=== PATIENT | female | born 1950 | race Caucasian/White ===

== ENCOUNTER 2018-07-26 11:17 | Outpatient (REF) | payer MEDICARE, MEDICAID, SELFPAY ==
[2018-07-26 22:03] LABS: Anion Gap 10.6 mmol/L (3-11); BUN 13 mg/dL (7-18); CO2 28.4 mmol/L (21.0-32.0); CREATININE 1.07 mg/dL (0.55-1.02); Calcium 8.8 mg/dL (8.5-10.1); Chloride 97 mmol/L (98-107); Estimated GFR 51.15 (mL/min/1.73m2); Glucose 153 mg/dL (70-100); Potassium 4.4 mmol/L (3.5-5.1); Sodium 136 mmol/L (136-145)
== END 2018-07-26 11:37 ==
LOC: NCHCN 11:17
PROVIDERS: PCP Family Medicine; Visit Provider Family Medicine
DX: N18.3 Chronic kidney disease, stage 3 (moderate) (principal); I10 Essential (primary) hypertension
CPT/HCPCS: 80048

== ENCOUNTER 2019-02-28 12:30 | Outpatient (REF) | payer MEDICARE, MEDICAID, SELFPAY ==
[2019-02-28 21:55] LABS: Anion Gap 10.8 mmol/L (3-11); BUN 15 mg/dL (7-18); CO2 25.2 mmol/L (21.0-32.0); Calcium 8.7 mg/dL (8.5-10.1); Chloride 100 mmol/L (98-107); Estimated GFR 49.54 (mL/min/1.73m2); Glucose 134 mg/dL (70-100); Potassium 5.6 mmol/L (3.5-5.1); Sodium 136 mmol/L (136-145); TSH (W/Ref FT4) 0.95 uIU/mL (0.36-3.74)
== END 2019-02-28 12:50 ==
LOC: NCHCN 12:30
PROVIDERS: PCP Family Medicine; Visit Provider Family Medicine
DX: E03.9 Hypothyroidism, unspecified (principal); N18.3 Chronic kidney disease, stage 3 (moderate)
CPT/HCPCS: 80048; 84443

== ENCOUNTER 2019-11-08 13:04 | Outpatient (REF) | payer MEDICARE, SELFPAY ==
[2019-11-08 20:40] LABS: Anion Gap 11.5 mmol/L (3-11); BUN 13 mg/dL (7-18); CO2 26.5 mmol/L (21.0-32.0); Calcium 9.9 mg/dL (8.5-10.1); Chloride 100 mmol/L (98-107); Estimated GFR 55.14 (mL/min/1.73m2); Glucose 130 mg/dL (74-106); Potassium 4.8 mmol/L (3.5-5.1); Sodium 138 mmol/L (136-145)
[2019-11-08 20:45] LABS: COMMENT (LAB VIEW ONLY) 43.57 mg/dL; Microalb ug/mg Crea 104.4 ug/mg Cr
== END 2019-11-08 13:24 ==
LOC: NCHCN 13:04
PROVIDERS: PCP Family Medicine; Visit Provider Registered Nurse
DX: E11.8 Type 2 diabetes mellitus with unspecified complications (principal); N18.3 Chronic kidney disease, stage 3 (moderate); E87.5 Hyperkalemia
CPT/HCPCS: 80048; 82043; 82570

== ENCOUNTER 2020-01-19 14:07 | Outpatient (REF) | payer MEDICARE, SELFPAY ==
[2020-01-19 22:01] LABS: BUN 12 mg/dL (7-18); CREATININE 0.94 mg/dL (0.55-1.02); Calcium 9.2 mg/dL (8.5-10.1); Chloride 101 mmol/L (98-107); Estimated GFR 59.22 (mL/min/1.73m2); Glucose 106 mg/dL (74-106); Potassium 4.6 mmol/L (3.5-5.1); Sodium 136 mmol/L (136-145)
== END 2020-01-19 14:27 ==
LOC: NCHCN 14:07
PROVIDERS: PCP Family Medicine; Visit Provider Registered Nurse
DX: R80.9 Proteinuria, unspecified (principal); I10 Essential (primary) hypertension
CPT/HCPCS: 80048

== ENCOUNTER 2020-12-03 14:51 | Outpatient (REF) | payer MEDICARE, SELFPAY ==
[2020-12-03 21:24] LABS: COMMENT (LAB VIEW ONLY) 125.45 mg/dL
[2020-12-03 21:26] LABS: Microalb ug/mg Crea 172.7 ug/mg Cr
== END 2020-12-03 14:52 | disposition home or self-care (01) ==
LOC: NCHCN 14:51
PROVIDERS: PCP Family Medicine; Visit Provider Family Medicine
DX: E11.8 Type 2 diabetes mellitus with unspecified complications (principal); E03.9 Hypothyroidism, unspecified; G89.4 Chronic pain syndrome
CPT/HCPCS: 82043; 82570

== ENCOUNTER 2021-06-11 21:04 | Outpatient (REF) | payer MEDICARE, SELFPAY ==
[2021-06-11 21:19] LABS: TSH 2.29 uIU/mL (0.36-3.74)
== END 2021-06-11 21:05 | disposition home or self-care (01) ==
LOC: NCHCN 21:04
PROVIDERS: PCP Family Medicine; Visit Provider Family Medicine
DX: E03.9 Hypothyroidism, unspecified (principal)
CPT/HCPCS: 84443

== ENCOUNTER 2021-09-05 19:08 | Outpatient (REF) | payer MEDICARE, SELFPAY ==
[2021-09-05 14:45] LABS: HCT 41.6 % (36.0-46.0); HGB 13.5 g/dL (11.2-15.7); MCH 29.3 pg (27.0-33.0); MCHC 32.5 % (32.0-36.0); MCV 90.2 fL (80-95); MPV 9.8 fL (8.0-11.0); Platelet Count 303 10^3/uL (130-400); RBC 4.61 10^6/uL (3.93-5.22); RDW 14.2 % (11.7-14.6); RDW-SD 47.1 fL; WBC 8.66 10^3/uL (4.4-10.8)
[2021-09-05 15:11] LABS: ALT 17 U/L (14-59); AST 13 U/L (15-37); Albumin 3.6 g/dL (3.4-5.0); Alkaline Phosphatase 81 U/L (46-116); Anion Gap 10.5 mmol/L (3-11); BUN 8 mg/dL (7-18); Bilirubin, Total 0.3 mg/dL (0.2-1.0); CO2 24.5 mmol/L (21.0-32.0); CREATININE 0.8 mg/dL (0.55-1.02); Calcium 8.3 mg/dL (8.5-10.1); Calculated LDL 48 mg/dL (<100); Chloride 99 mmol/L (98-107); Cholesterol 139 mg/dL (<200); Glucose 91 mg/dL (74-106); HDL Cholesterol 66 mg/dL (40-60); Potassium 4.9 mmol/L (3.5-5.1); Sodium 134 mmol/L (136-145); Total Protein 6.8 g/dL (6.4-8.2); Triglyceride 125 mg/dL (<150)
== END 2021-09-05 19:09 | disposition home or self-care (01) ==
LOC: NCHCN 19:08
PROVIDERS: PCP Family Medicine; Visit Provider Family Medicine
DX: E66.9 Obesity, unspecified (principal); R63.4 Abnormal weight loss; Z13.220 Encounter for screening for lipoid disorders
CPT/HCPCS: 80053; 80061; 85027

== ENCOUNTER 2021-12-19 15:55 | Outpatient (REF) | payer MEDICARE, SELFPAY ==
[2021-12-19 22:01] LABS: COMMENT (LAB VIEW ONLY) 113.98 mg/dL
[2021-12-19 22:09] LABS: Microalb ug/mg Crea 120.3 ug/mg Cr
== END 2021-12-19 15:56 | disposition home or self-care (01) ==
LOC: NCHCN 15:55
PROVIDERS: PCP Family Medicine; Visit Provider Registered Nurse
DX: E11.8 Type 2 diabetes mellitus with unspecified complications (principal); N76.0 Acute vaginitis
CPT/HCPCS: 82043; 82570; 87480; 87510; 87660

== ENCOUNTER 2022-09-11 17:06 | Outpatient (REF) | payer MEDICARE, SELFPAY ==
--- OUTSIDE RECORDS SUMMARY | 2022-09-11 17:09 | XMS_ITS | CCD ---
Author Name Unknown Address [address] [place] [address] [phone] Organization Unknown Address [address] [place] [address] [phone] Care Team Providers Care Television Mechanic Name Role Phone TOMÁS MANSOOR E Attending Physician [phone] Vital Signs Unknown or Not Available. Allergies Allergy Code Allergy Type Reaction Status LISINOPRIL 74836 Drug allergy OLENA INHIBITOR EDEMA Act lashell ERYTHROMYCIN 4053 Drug allergy Active AMOXICILLIN 723 Drug allergy Hives Active CECLOR {Deactivated Allergy} 900047 Drug allergy Hives Active CLINDAMYCIN HCL 2582 Drug allergy Active SEASONAL {Clinical monitorin g unavailable} 0 Allergy to substance Active LEVAQUIN 561175 Drug allergy PROFUSE VOMITING Active BACTRIM 979028 Drug allergy SEVERE SWELLING Active Procedures Unknown or Not Available. History of Immunizations Unknown or Not Available. Problems Problem Code Start Date Resolved Date Status Congestive heart failure, unspecified 88313162 Active Results Unknown or Not Available. Active Medications Medication Code Dose Units Frequency Route Modificatio n Start Date/Time Sodium Bicarbonate 7.5% Intravenous Solution 513570 150 MILLILITERS per hour INTRAVENOUS 2017 18:53 Prescription Detail 150 MILLILITERS INTRAVENOUS per hour Ipratropium [place]-Albut mer Sulfate 0.5MG/3ML-3MG /3ML Inhalation Solution 6354812 3 MILLILITERS NEEDED EVERY 4 HOURS INHALATION 10/17/2017 18:52 Prescription Detail 3 MILLILITERS INHALATION NEEDED EVERY 4 HOURS Mapap 325MG Oral Tablet 409376 650 MILLIGRAMS NEEDED EVERY 4 HOURS BY MOUTH 10/17/2017 18:52 Prescription Detail TAKE 650 MILLIGRAMS BY MOUTH NEEDED E VERY 4 HOURS Synthroid 125MCG Oral Tablet 783969 125 MICROGRAM Q7AM BY MOUTH 10/17/2017 18:52 Prescription Detail TAKE 125 MICROGRAM BY MOUTH Q7AM Ipratropium [place]-Albut mer Sulfate 0.5MG/3ML-3MG /3ML Inhalation Solution 6942230 1 EACH FOUR TIMES A DAY INHALATION 08/27/2017 14:34 Prescription Detail 1 EACH INHALATION FOUR TIMES A DAY Medications Administered During Visit Unknown or Not Available. Encounters Encounter Diagnosis Diagnosis Code Start Date Encounter for screening mamm ogram for malignant neoplasm of breast Z1231 10/16/2021 Social History Smoking Status Code Start Date End Date Former smoker [id number] Patient Decision Aids Unknown or Not Available. Discharge Instructions You were admitted to [facility] on 10/16/2021 13:39 with a principal diagnosis of Encounter for screening mammogram for malignant neoplasm of breast You were discharged from [facility] on 10/16/2021 13:39 Should you have any questions prior to discharge, please contact a member of your healthcare team. If you have left the hospital and have any questions, please contact your primary care physician. Chief Complaint and Reason For Visit Chief Complaint Date of Onset POSTMENOPAUSAL MM SCR LDCT SMOKER Function Status Unknown or Not Available. Plan of Care Unknown or Not Available. Referral/Transition of Care Unknown or Not Available.
--- OUTSIDE RECORDS SUMMARY | 2022-09-11 17:09 | XMS_ITS | CCD ---
Author Name Unknown Address [address] [place] [address] [phone] Organization Unknown Address [address] [place] [address] [phone] Care Team Providers Care In Home Tutor Name Role Phone JOSE CORTEZ Attending Physician [phone] JOSE CORTEZ Rounding (Secondary) Physicia n [phone] Vital Signs Unknown or Not Available. Allergies Allergy Code Allergy Type Reaction Status LISINOPRIL 56496 Drug allergy OLENA INHIBITOR EDEMA Act lashell ERYTHROMYCIN 4053 Drug allergy Active AMOXICILLIN 723 Drug allergy Hives Active CECLOR {Deactivated Allergy} 436628 Drug allergy Hives Active CLINDAMYCIN HCL 2582 Drug allergy Active SEASONAL {Clinical monitorin g unavailable} 0 Allergy to substance Active LEVAQUIN 170004 Drug allergy PROFUSE VOMITING Active BACTRIM 381407 Drug allergy SEVERE SWELLING Active Procedures Unknown or Not Available. History of Immunizations Unknown or Not Available. Problems Problem Code Start Date Resolved Date Status Congestive heart failure, unspecified 28772772 Active Results Unknown or Not Available. Active Medications Medication Code Dose Units Frequency Route Modificatio n Start Date/Time Sodium Bicarbonate 7.5% Intravenous Solution 566186 150 MILLILITERS per hour INTRAVENOUS 2017 18:53 Prescription Detail 150 MILLILITERS INTRAVENOUS per hour Ipratropium [place]-Albut mer Sulfate 0.5MG/3ML-3MG /3ML Inhalation Solution 4642732 3 MILLILITERS NEEDED EVERY 4 HOURS INHALATION 10/17/2017 18:52 Prescription Detail 3 MILLILITERS INHALATION NEEDED EVERY 4 HOURS Mapap 325MG Oral Tablet 854190 650 MILLIGRAMS NEEDED EVERY 4 HOURS BY MOUTH 10/17/2017 18:52 Prescription Detail TAKE 650 MILLIGRAMS BY MOUTH NEEDED E VERY 4 HOURS Synthroid 125MCG Oral Tablet 391116 125 MICROGRAM Q7AM BY MOUTH 10/17/2017 18:52 Prescription Detail TAKE 125 MICROGRAM BY MOUTH Q7AM Ipratropium [place]-Albut mer Sulfate 0.5MG/3ML-3MG /3ML Inhalation Solution 8571922 1 EACH FOUR TIMES A DAY INHALATION 08/27/2017 14:34 Prescription Detail 1 EACH INHALATION FOUR TIMES A DAY Medications Administered During Visit Unknown or Not Available. Encounters Encounter Diagnosis Diagnosis Code Start Date Chronic ulcer of foot 180024201 12/17/2021 Social History Smoking Status Code Start Date End Date Former smoker 5481977 Patient Decision Aids Unknown or Not Available. Discharge Instructions You were admitted to [facility] on 12/17/2021 13:49 with a principal diagnosis of Non-pressure chronic ulcer of other part of right foot with fat layer exposed You were discharged from [facility] on 12/17/2021 00:00 Should you have any questions prior to discharge, please contact a member of your healthcare team. If you have left the hospital and have any questions, please contact your primary care physician. Chief Complaint and Reason For Visit Unknown or Not Available. Function Status Unknown or Not Available. Plan of Care Unknown or Not Available. Referral/Transition of Care Unknown or Not Available.
--- OUTSIDE RECORDS SUMMARY | 2022-09-11 17:09 | XMS_ITS | CCD ---
Author Name Unknown Address [address] [place] [address] [phone] Organization Unknown Address [address] [place] [address] [phone] Care Team Providers Care Wool Cleaner Name Role Phone JOSE CORTEZ Attending Physician [phone] JOSE CORTEZ Rounding (Secondary) Physicia n [phone] Vital Signs Unknown or Not Available. Allergies Allergy Code Allergy Type Reaction Status LISINOPRIL 34678 Drug allergy OLENA INHIBITOR EDEMA Act lashell ERYTHROMYCIN 4053 Drug allergy Active AMOXICILLIN 723 Drug allergy Hives Active CECLOR {Deactivated Allergy} 655909 Drug allergy Hives Active CLINDAMYCIN HCL 2582 Drug allergy Active SEASONAL {Clinical monitorin g unavailable} 0 Allergy to substance Active LEVAQUIN 100461 Drug allergy PROFUSE VOMITING Active BACTRIM 510084 Drug allergy SEVERE SWELLING Active Procedures Unknown or Not Available. History of Immunizations Unknown or Not Available. Problems Problem Code Start Date Resolved Date Status Congestive heart failure, unspecified 89760726 Active Results Unknown or Not Available. Active Medications Medication Code Dose Units Frequency Route Modificatio n Start Date/Time Sodium Bicarbonate 7.5% Intravenous Solution 871784 150 MILLILITERS per hour INTRAVENOUS 2017 18:53 Prescription Detail 150 MILLILITERS INTRAVENOUS per hour Ipratropium [place]-Albut mer Sulfate 0.5MG/3ML-3MG /3ML Inhalation Solution 8855151 3 MILLILITERS NEEDED EVERY 4 HOURS INHALATION 10/17/2017 18:52 Prescription Detail 3 MILLILITERS INHALATION NEEDED EVERY 4 HOURS Mapap 325MG Oral Tablet 131183 650 MILLIGRAMS NEEDED EVERY 4 HOURS BY MOUTH 10/17/2017 18:52 Prescription Detail TAKE 650 MILLIGRAMS BY MOUTH NEEDED E VERY 4 HOURS Synthroid 125MCG Oral Tablet 688299 125 MICROGRAM Q7AM BY MOUTH 10/17/2017 18:52 Prescription Detail TAKE 125 MICROGRAM BY MOUTH Q7AM Ipratropium [place]-Albut mer Sulfate 0.5MG/3ML-3MG /3ML Inhalation Solution 7944147 1 EACH FOUR TIMES A DAY INHALATION 08/27/2017 14:34 Prescription Detail 1 EACH INHALATION FOUR TIMES A DAY Medications Administered During Visit Unknown or Not Available. Encounters Encounter Diagnosis Diagnosis Code Start Date Chronic ulcer of foot [id number] 02/16/2022 Social History Smoking Status Code Start Date End Date Former smoker 2832802 Patient Decision Aids Unknown or Not Available. Discharge Instructions You were admitted to [facility] on 02/16/2022 13:11 with a principal diagnosis of Non-pressure chronic ulcer of other part of left foot with fat layer exposed You were discharged from [facility] on 02/16/2022 00:00 Should you have any questions prior [...]
--- OUTSIDE RECORDS SUMMARY | 2022-09-11 17:09 | XMS_ITS | CCD ---
Author Name Unknown Address [address] [place] [address] [id number] Organization Unknown Address [address] [place] [address] [phone] Care Team Providers Care Special Police Name Role Phone JOSE CORTEZ Attending Physician [phone] JOSE CORTEZ Rounding (Secondary) Physicia n [phone] Vital Signs Unknown or Not Available. Allergies Allergy Code Allergy Type Reaction Status LISINOPRIL 39106 Drug allergy OLENA INHIBITOR EDEMA Act lashell ERYTHROMYCIN 4053 Drug allergy Active AMOXICILLIN 723 Drug allergy Hives Active CECLOR {Deactivated Allergy} 949585 Drug allergy Hives Active CLINDAMYCIN HCL 2582 Drug allergy Active SEASONAL {Clinical monitorin g unavailable} 0 Allergy to substance Active LEVAQUIN 626126 Drug allergy PROFUSE VOMITING Active BACTRIM 170902 Drug allergy SEVERE SWELLING Active Procedures Unknown or Not Available. History of Immunizations Unknown or Not Available. Problems Problem Code Start Date Resolved Date Status Congestive heart failure, unspecified 25693538 Active Results Unknown or Not Available. Active Medications Medication Code Dose Units Frequency Route Modificatio n Start Date/Time Sodium Bicarbonate 7.5% Intravenous Solution 810005 150 MILLILITERS per hour INTRAVENOUS 2017 18:53 Prescription Detail 150 MILLILITERS INTRAVENOUS per hour Ipratropium [place]-Albut mer Sulfate 0.5MG/3ML-3MG /3ML Inhalation Solution 9142570 3 MILLILITERS NEEDED EVERY 4 HOURS INHALATION 10/17/2017 18:52 Prescription Detail 3 MILLILITERS INHALATION NEEDED EVERY 4 HOURS Mapap 325MG Oral Tablet 729782 650 MILLIGRAMS NEEDED EVERY 4 HOURS BY MOUTH 10/17/2017 18:52 Prescription Detail TAKE 650 MILLIGRAMS BY MOUTH NEEDED E VERY 4 HOURS Synthroid 125MCG Oral Tablet 984376 125 MICROGRAM Q7AM BY MOUTH 10/17/2017 18:52 Prescription Detail TAKE 125 MICROGRAM BY MOUTH Q7AM Ipratropium [place]-Albut mer Sulfate 0.5MG/3ML-3MG /3ML Inhalation Solution 3123026 1 EACH FOUR TIMES A DAY INHALATION 08/27/2017 14:34 Prescription Detail 1 EACH INHALATION FOUR TIMES A DAY Medications Administered During Visit Unknown or Not Available. Encounters Encounter Diagnosis Diagnosis Code Start Date Chronic ulcer of foot [id number] 01/28/2022 Social History Smoking Status Code Start Date End Date Former smoker 3340247 Patient Decision Aids Unknown or Not Available. Discharge Instructions You were admitted to [facility] on 01/28/2022 11:32 with a principal diagnosis of Non-pressure chronic ulcer of other part of left foot with fat layer exposed You were discharged from [facility] on 01/28/2022 00:00 Should you have any questions prior [...]
--- OUTSIDE RECORDS SUMMARY | 2022-09-11 17:09 | XMS_ITS | CCD ---
Author Name Unknown Address [address] [place] [address] [phone] Organization Unknown Address [address] [place] [address] [phone] Care Team Providers Care Weave Defect Charting Clerk Name Role Phone SONDRA GREER Attending Physician [phone] SONDRA GREER Rounding (Secondary) Physici an [phone] Vital Signs Unknown or Not Available. Allergies Allergy Code Allergy Type Reaction Status LISINOPRIL 64682 Drug allergy OLENA INHIBITOR EDEMA Act lashell ERYTHROMYCIN 4053 Drug allergy Active AMOXICILLIN 723 Drug allergy Hives Active CECLOR {Deactivated Allergy} 934793 Drug allergy Hives Active CLINDAMYCIN HCL 2582 Drug allergy Active SEASONAL {Clinical monitorin g unavailable} 0 Allergy to substance Active LEVAQUIN 874273 Drug allergy PROFUSE VOMITING Active BACTRIM 109217 Drug allergy SEVERE SWELLING Active Procedures Unknown or Not Available. History of Immunizations Unknown or Not Available. Problems Problem Code Start Date Resolved Date Status Congestive heart failure, unspecified 18959737 Active Results Unknown or Not Available. Active Medications Medication Code Dose Units Frequency Route Modificatio n Start Date/Time Sodium Bicarbonate 7.5% Intravenous Solution 204901 150 MILLILITERS per hour INTRAVENOUS 2017 18:53 Prescription Detail 150 MILLILITERS INTRAVENOUS per hour Ipratropium [place]-Albut mer Sulfate 0.5MG/3ML-3MG /3ML Inhalation Solution 0158424 3 MILLILITERS NEEDED EVERY 4 HOURS INHALATION 10/17/2017 18:52 Prescription Detail 3 MILLILITERS INHALATION NEEDED EVERY 4 HOURS Mapap 325MG Oral Tablet 286749 650 MILLIGRAMS NEEDED EVERY 4 HOURS BY MOUTH 10/17/2017 18:52 Prescription Detail TAKE 650 MILLIGRAMS BY MOUTH NEEDED E VERY 4 HOURS Synthroid 125MCG Oral Tablet 139746 125 MICROGRAM Q7AM BY MOUTH 10/17/2017 18:52 Prescription Detail TAKE 125 MICROGRAM BY MOUTH Q7AM Ipratropium [place]-Albut mer Sulfate 0.5MG/3ML-3MG /3ML Inhalation Solution 5112560 1 EACH FOUR TIMES A DAY INHALATION 08/27/2017 14:34 Prescription Detail 1 EACH INHALATION FOUR TIMES A DAY Medications Administered During Visit Unknown or Not Available. Encounters Encounter Diagnosis Diagnosis Code Start Date Refusal of treatment by patient [id number] 11/25/2021 Social History Smoking Status Code Start Date End Date Former smoker 2727079 Patient Decision Aids Unknown or Not Available. Discharge Instructions You were admitted to [facility] on 11/25/2021 10:22 with a principal diagnosis of Procedure and treatment not carried out because of patient's decision for other reasons You were discharged from [facility] on 11/25/2021 15:48 Should you have any questions prior to [...]
--- OUTSIDE RECORDS SUMMARY | 2022-09-11 17:09 | XMS_ITS | CCD ---
Author Name Unknown Address [address] [place] [address] [phone] Organization Unknown Address [address] [place] [address] [phone] Care Team Providers Care Cottrell Blower Name Role Phone JOSE CORTEZ Attending Physician [phone] JOSE CORTEZ Rounding (Secondary) Physicia n [phone] Vital Signs Unknown or Not Available. Allergies Allergy Code Allergy Type Reaction Status LISINOPRIL 87559 Drug allergy OLENA INHIBITOR EDEMA Act lashell ERYTHROMYCIN 4053 Drug allergy Active AMOXICILLIN 723 Drug allergy Hives Active CECLOR {Deactivated Allergy} 819813 Drug allergy Hives Active CLINDAMYCIN HCL 2582 Drug allergy Active SEASONAL {Clinical monitorin g unavailable} 0 Allergy to substance Active LEVAQUIN 909792 Drug allergy PROFUSE VOMITING Active BACTRIM 890747 Drug allergy SEVERE SWELLING Active Procedures Unknown or Not Available. History of Immunizations Unknown or Not Available. Problems Problem Code Start Date Resolved Date Status Congestive heart failure, unspecified 62625137 Active Results Unknown or Not Available. Active Medications Medication Code Dose Units Frequency Route Modificatio n Start Date/Time Sodium Bicarbonate 7.5% Intravenous Solution 624498 150 MILLILITERS per hour INTRAVENOUS 2017 18:53 Prescription Detail 150 MILLILITERS INTRAVENOUS per hour Ipratropium [place]-Albut mer Sulfate 0.5MG/3ML-3MG /3ML Inhalation Solution 1431838 3 MILLILITERS NEEDED EVERY 4 HOURS INHALATION 10/17/2017 18:52 Prescription Detail 3 MILLILITERS INHALATION NEEDED EVERY 4 HOURS Mapap 325MG Oral Tablet 155181 650 MILLIGRAMS NEEDED EVERY 4 HOURS BY MOUTH 10/17/2017 18:52 Prescription Detail TAKE 650 MILLIGRAMS BY MOUTH NEEDED E VERY 4 HOURS Synthroid 125MCG Oral Tablet 726972 125 MICROGRAM Q7AM BY MOUTH 10/17/2017 18:52 Prescription Detail TAKE 125 MICROGRAM BY MOUTH Q7AM Ipratropium [place]-Albut mer Sulfate 0.5MG/3ML-3MG /3ML Inhalation Solution 7367601 1 EACH FOUR TIMES A DAY INHALATION 08/27/2017 14:34 Prescription Detail 1 EACH INHALATION FOUR TIMES A DAY Medications Administered During Visit Unknown or Not Available. Encounters Encounter Diagnosis Diagnosis Code Start Date Chronic ulcer of foot [id number] 01/14/2022 Social History Smoking Status Code Start Date End Date Former smoker 0379916 Patient Decision Aids Unknown or Not Available. Discharge Instructions You were admitted to [facility] on 01/14/2022 14:19 with a principal diagnosis of Non-pressure chronic ulcer of other part of left foot with fat layer exposed You were discharged from [facility] on 01/14/2022 00:00 Should you have any questions prior [...]
--- OUTSIDE RECORDS SUMMARY | 2022-09-11 17:10 | XMS_ITS | CCD ---
Author Name Unknown Address [address] [place] [address] [phone] Organization Unknown Address [address] [place] [address] [phone] Care Team Providers Care Cigar Head Perforator Name Role Phone AJ SANCHEZ Attending Physician [phone] AJ SANCHEZ Rounding (Secondary) Physician [phone] Vital Signs Unknown or Not Available. Allergies Allergy Code Allergy Type Reaction Status LISINOPRIL 00392 Drug allergy OLENA INHIBITOR EDEMA Act lashell ERYTHROMYCIN 4053 Drug allergy Active AMOXICILLIN 723 Drug allergy Hives Active CECLOR {Deactivated Allergy} 448924 Drug allergy Hives Active CLINDAMYCIN HCL 2582 Drug allergy Active SEASONAL {Clinical monitorin g unavailable} 0 Allergy to substance Active LEVAQUIN 555196 Drug allergy PROFUSE VOMITING Active BACTRIM 221040 Drug allergy SEVERE SWELLING Active Procedures Unknown or Not Available. History of Immunizations Unknown or Not Available. Problems Problem Code Start Date Resolved Date Status Congestive heart failure, unspecified 13723421 Active Results Unknown or Not Available. Active Medications Medication Code Dose Units Frequency Route Modificatio n Start Date/Time Sodium Bicarbonate 7.5% Intravenous Solution 240668 150 MILLILITERS per hour INTRAVENOUS 2017 18:53 Prescription Detail 150 MILLILITERS INTRAVENOUS per hour Ipratropium [place]-Albut mer Sulfate 0.5MG/3ML-3MG /3ML Inhalation Solution 5531625 3 MILLILITERS NEEDED EVERY 4 HOURS INHALATION 10/17/2017 18:52 Prescription Detail 3 MILLILITERS INHALATION NEEDED EVERY 4 HOURS Mapap 325MG Oral Tablet 734946 650 MILLIGRAMS NEEDED EVERY 4 HOURS BY MOUTH 10/17/2017 18:52 Prescription Detail TAKE 650 MILLIGRAMS BY MOUTH NEEDED E VERY 4 HOURS Synthroid 125MCG Oral Tablet 460931 125 MICROGRAM Q7AM BY MOUTH 10/17/2017 18:52 Prescription Detail TAKE 125 MICROGRAM BY MOUTH Q7AM Ipratropium [place]-Albut mer Sulfate 0.5MG/3ML-3MG /3ML Inhalation Solution 1441856 1 EACH FOUR TIMES A DAY INHALATION 08/27/2017 14:34 Prescription Detail 1 EACH INHALATION FOUR TIMES A DAY Medications Administered During Visit Unknown or Not Available. Encounters Unknown or Not Available. Social History Smoking Status Code Start Date End Date Former smoker 0546460 Patient Decision Aids Unknown or Not Available. Discharge Instructions You were admitted to [facility] You were discharged from [facility] Should you have any questions prior to [...]
[2022-09-11 21:18] LABS: HCT 40.4 % (36.0-46.0); HGB 13.2 g/dL (11.2-15.7); MCH 29.1 pg (27.0-33.0); MCHC 32.7 % (32.0-36.0); MCV 89 fL (80-95); MPV 9.4 fL (8.0-11.0); Platelet Count 319 10^3/uL (130-400); RBC 4.54 10^6/uL (3.93-5.22); RDW 13.4 % (11.7-14.6); RDW-SD 43.8 fL; WBC 10.39 10^3/uL (4.4-10.8)
[2022-09-11 21:35] LABS: ALT 19 U/L (14-59); AST 20 U/L (15-37); Albumin 3.5 g/dL (3.4-5.0); Alkaline Phosphatase 84 U/L (46-116); Anion Gap 5.9 mmol/L (3-11); BUN 14 mg/dL (7-18); Bilirubin, Total 0.3 mg/dL (0.2-1.0); CO2 30.1 mmol/L (21.0-32.0); Calcium 9.1 mg/dL (8.5-10.1); Chloride 99 mmol/L (98-107); Estimated GFR 60.23 (mL/min/1.73m2); Glucose 105 mg/dL (74-106); Potassium 5.4 mmol/L (3.5-5.1); Sodium 135 mmol/L (136-145); TSH (W/Ref FT4) 1.61 uIU/mL (0.36-3.74); Total Protein 7.4 g/dL (6.4-8.2)
== END 2022-09-11 17:07 | disposition home or self-care (01) ==
LOC: NCHCN 17:06
PROVIDERS: PCP Family Medicine; Visit Provider Family Medicine
DX: E03.9 Hypothyroidism, unspecified (principal); R63.4 Abnormal weight loss
CPT/HCPCS: 80053; 85027; 84443

== ENCOUNTER 2023-03-19 13:39 | Outpatient (REF) | payer MEDICARE, SELFPAY ==
--- NOTE | 2023-03-19 09:15 | SKI_PTH ---
PATIENT: Shannan Garcia LOC: JJ U#:[id number] AGE/SX: 72/F ROOM: RE03/19/[address]: EVELYN Lynn : 1950 BED: DIS: 03/19/2023 SPEC #: [id number] RECD: 03/19/23 13:40 STATUS: KSENIA REQ #: [id number] [facility]: 03/19/23 09:[address]: Isaac Whaley DEPT: Surgical Specimen RECD BY: Radha Kennedy ENTERED: 03/19/23 13:41 SP TYPE: KYLEE AVILA DR: Aury Pozo Tissues: 1 - SKIN BIOPSY(SHAVE/PUNCH) 2 - SKIN BIOPSY(SHAVE/PUNCH) Procedures: SKIN LEVEL 4 SPECIAL STAIN 1 Comments: [id number]
== END 2023-03-19 13:40 | disposition home or self-care (01) ==
LOC: LBN 13:39
PROVIDERS: PCP Family Medicine; Visit Provider Physician Assistant
DX: L90.5 Scar conditions and fibrosis of skin (principal)
CPT/HCPCS: 88305; 88312

== ENCOUNTER 2023-04-06 17:02 | Outpatient (REF) | payer MEDICARE, SELFPAY ==
--- OUTSIDE RECORDS SUMMARY | 2023-04-06 17:05 | XMS_ITS | Continuity of Care Document ---
Author Name Unknown Organization [facility] Address [address] [place] [address] Care Team Providers Care Oracle Drm Consultant Name Role Phone MANSOOR ENGLAND MD Primary Care Physician [phone] Encounter [facility] NBR [id number] Date(s): 09/14/22 - 09/14/22 [facility] [address] [place] [address]- [place] Patient Care team information Care Team Personnel Name: MANSOOR ENGLAND MD Position: No Access Member Role: Primary Care Physician
[2023-04-06 21:17] LABS: Hemoglobin A1C 7.1 % (<5.7)
[2023-04-06 21:38] LABS: Vitamin D 25 Total < 5 ng/mL (30-100)
[2023-04-13 14:04] LABS: BP 180 5 RU/mL (<20); BP 230 144 RU/mL (<20)
== END 2023-04-06 17:03 | disposition home or self-care (01) ==
LOC: NCHCN 17:02
PROVIDERS: PCP Family Medicine; Visit Provider Family Medicine
DX: E11.8 Type 2 diabetes mellitus with unspecified complications (principal); L13.9 Bullous disorder, unspecified; F19.20 Other psychoactive substance dependence, uncomplicated; Z91.89 Other specified personal risk factors, not elsewhere classified
CPT/HCPCS: 82306; 83516; 83036

== ENCOUNTER 2023-09-14 20:47 | Outpatient (REF) | payer MEDICARE, SELFPAY ==
[2023-09-14 21:36] LABS: Hemoglobin A1C 7.1 % (<5.7)
[2023-09-14 21:40] LABS: Anion Gap 10.7 mmol/L (3-11); BUN 22 mg/dL (7-18); CO2 25.3 mmol/L (21.0-32.0); CREATININE 1.1 mg/dL (0.55-1.02); Calcium 8.1 mg/dL (8.5-10.1); Chloride 97 mmol/L (98-107); Estimated GFR 53.39 (mL/min/1.73m2); Glucose 111 mg/dL (74-106); Potassium 5.3 mmol/L (3.5-5.1); Sodium 133 mmol/L (136-145); TSH 1.43 uIU/Ml (0.36-3.74)
[2023-09-14 21:44] LABS: COMMENT (LAB VIEW ONLY) 56.55 mg/dL
[2023-09-14 21:49] LABS: Microalb ug/mg Crea 167.1 ug/mg Cr
== END 2023-09-14 20:48 | disposition home or self-care (01) ==
LOC: NCHCN 20:47
PROVIDERS: PCP Family Medicine; Referring Provider Family Medicine; Visit Provider Family Medicine
DX: E11.8 Type 2 diabetes mellitus with unspecified complications (principal); E03.9 Hypothyroidism, unspecified; N18.30 Chronic kidney disease, stage 3 unspecified
CPT/HCPCS: 80048; 82043; 82570; 83036; 84443

== ENCOUNTER 2024-04-24 12:36 | Outpatient (REF) | payer MEDICARE, SELFPAY ==
[2024-04-24 14:38] LABS: ALT 12 U/L (14-59); AST 17 U/L (15-37); Albumin 2.8 g/dL (3.4-5.0); Alkaline Phosphatase 132 U/L (46-116); Bilirubin, Direct 0.1 mg/dL (0.0-0.2); Bilirubin, Total 0.41 mg/dL (0.2-1.0); TSH (W/Ref FT4) 1.01 uIU/mL (0.36-3.74); Total Protein 7.5 g/dL (6.4-8.2)
== END 2024-04-24 12:37 | disposition home or self-care (01) ==
LOC: NCHCN 12:36
PROVIDERS: PCP Family Medicine; Visit Provider Family Medicine
DX: R63.4 Abnormal weight loss (principal)
CPT/HCPCS: 80076; 84443

== ENCOUNTER 2024-10-16 16:14 | Outpatient (REF) | payer MEDICARE, SELFPAY ==
[2024-10-16 21:53] LABS: HGB 14.5 g/dL (11.2-15.7); MCH 28.9 pg (27.0-33.0); MCHC 33.7 % (32.0-36.0); MCV 86 fL (80-95); MPV 9.6 fL (8.0-11.0); Platelet Count 344 10^3/uL (130-400); RBC 5.01 10^6/uL (3.93-5.22); RDW 13.9 % (11.7-14.6); RDW-SD 43.3 fL; WBC 7.56 10^3/uL (4.4-10.8)
[2024-10-16 21:58] LABS: Anion Gap 10.3 mmol/L (3-11); BUN 9 mg/dL (7-18); CO2 24.7 mmol/L (21.0-32.0); CREATININE 1.2 mg/dL (0.55-1.02); Calcium 9.5 mg/dL (8.5-10.1); Chloride 95 mmol/L (98-107); Glucose 168 mg/dL (74-106); Potassium 5.4 mmol/L (3.5-5.1); Sodium 130 mmol/L (136-145)
== END 2024-10-16 16:15 | disposition home or self-care (01) ==
LOC: NCHCN 16:14
PROVIDERS: PCP Family Medicine; Visit Provider Family Medicine
DX: I50.21 Acute systolic (congestive) heart failure (principal); I25.10 Atherosclerotic heart disease of native coronary artery without angina pectoris
CPT/HCPCS: 80048; 85027

== ENCOUNTER 2025-05-11 13:05 | Outpatient (REF) | payer MEDICARE, SELFPAY ==
[2025-05-11 15:15] LABS: Anion Gap 7 mmol/L (3-11); BUN 19 mg/dL (9-23); CO2 28.0 mmol/L (20.0-31.0); Calcium 10.0 mg/dL (8.3-10.6); Chloride 101 mmol/L (98-107); Glucose 89 mg/dL (74-106); Potassium 5.2 mmol/L (3.5-5.1); Sodium 136 mmol/L (136-145)
[2025-05-11 15:18] LABS: Vitamin D 25 Total 33 ng/mL (30-100)
[2025-05-11 15:19] LABS: TSH 10.04 uIU/mL (0.55-4.78)
== END 2025-05-11 13:06 | disposition home or self-care (01) ==
LOC: NCHCN 13:05
PROVIDERS: PCP Family Medicine; Visit Provider Family Medicine
DX: E55.9 Vitamin D deficiency, unspecified (principal); I10 Essential (primary) hypertension; E03.9 Hypothyroidism, unspecified
CPT/HCPCS: 80048; 82306; 84443